=== PATIENT | male | born 1940 | race Caucasian/White ===

== ENCOUNTER 2018-09-22 02:35 | Observation (INO) ==
[2018-09-22] MEDS ORDERED: Famotidine PF Inj 20 MG/2 ML Vial IV.PUSH ONE (02:43)
[2018-09-22] MEDS ORDERED: Aluminum/Magnesium/Simethacone Susp 30 ML UDC PO ONE (02:51)
[2018-09-22 03:16] LABS: Chloride 107 meq/L (98-107); Potassium 4.3 meq/L (3.5-5.1); Sodium 140 meq/L (136-145)
[2018-09-22 03:19] LABS: Calcium 10.5 mg/dL (8.5-10.1)
[2018-09-22 03:20] LABS: Albumin 3.7 g/dL (3.4-5.0); Blood Urea Nitrogen 21 mg/dL (7-18); Glucose,Random 99 mg/dL (74-106); Lipase 100 U/L (73-393)
[2018-09-22 03:22] LABS: Alanine Aminotransferase 29 U/L (12-78); Baso # (Auto) 0.1 th/mm3 (0.0-0.2); Baso % (Auto) 0.9 % (0.0-2.0); Eos # (Auto) 0.4 th/mm3 (0.0-0.4); Eos % (Auto) 3.3 % (0.0-4.0); Hematocrit 47.5 % (39.0-51.0); Hemoglobin 15.4 gm/dL (13.0-17.0); Lymph # (Auto) 2.4 th/mm3 (1.0-4.8); Lymph % (Auto) 19.8 % (9.0-44.0); Mean Corpuscular HGB Conc 32.3 % (32.0-36.0); Mean Corpuscular Volume 83.5 fL (80.0-100.0); Mean Platelet Volume 10.8 fL (7.0-11.0); Mono # (Auto) 1.2 th/mm3 (0.0-0.9); Mono % (Auto) 9.6 % (0.0-8.0); Neut # (Auto) 7.9 th/mm3 (1.8-7.7); Neut % (Auto) 66.4 % (16.0-70.0); Platelet Count 306 th/mm3 (150-450); Red Blood Count 5.69 mil/mm3 (4.50-5.90); Red Cell Distribution Width 15.4 % (11.6-17.2)
[2018-09-22 03:23] LABS: Aspartate Aminotransferase 33 U/L (15-37); Glomerular Filtration Rate 58 mL/min (>89)
[2018-09-22 03:24] LABS: Anion Gap 6 meq/L (5-15); Carbon Dioxide 27.3 meq/L (21.0-32.0); Total Protein 7.7 g/dL (6.4-8.2)
[2018-09-22 03:25] LABS: Alkaline Phosphatase 160 U/L (45-117)
[2018-09-22] MEDS ORDERED: Sodium Chlor 0.9% Inj 500 ML IV.SIG ONE (03:28)
--- NOTE | 2018-09-22 03:32 | XR ---
EXAM DATE: 09/22/2018 3:25 AM EST AGE/SEX: 78 years / Male INDICATIONS: . Chest pain. CLINICAL DATA: This is the patient's initial encounter. Patient reports that signs and symptoms have been present for 1 day and indicates a pain score of 5/10. MEDICAL/SURGICAL HISTORY: None. None. COMPARISON: No prior exams available for comparison. FINDINGS: There is mild basilar interstitial prominence of undetermined chronicity. No evidence of alveolar con solidation or significant effusion. Cardiac contours are satisfactory. Degenerative changes present i n the spine. CONCLUSION: Mild interstitial prominence of undetermined chronicity Electronically signed by: Celso Bains MD 09/22/2018 3:31 AM EST
--- NOTE | 2018-09-22 03:59 | ED ---
HPI General Chief Complaint: Chest Pain Stated Complaint: Chest pain x 1.5 hrs Time Seen by Provider: 09/22/18 02:43 Source: patient Mode of arrival: ambulatory Limitations: no limitations History of Present Illness HPI narrative: pt is relatively healthy 78 yr old male active in shape who awoke to a substernal chest pain that radiates to his left shoulder , It was a sharp and burning like pain , It was unlike his prior " heartburn " episodes as it is shaquille in chest and radiates to left side shoulder , never had this kind of CP before. He reports he has had Stress test in the past that was negative and he was able to run on treadmill test without ptroblenuno MARQUEZ complaint: Reports chest pain STEMI Alert: No Onset (ago): hour(s) (1) Duration: constant Onset: during rest Pain location: Reports substernal and left chest Severity: moderate Severity scale (1-10): 5 Quality: Reports heaviness Pain radiation: Reports LUE and other Relieving factors: nothing Exacerbating factors: nothing Treatments prior to arrival chest pain: Reports none Related Data Home Medications Medication Instructions Recorded Confirmed aspirin 81 mg PO DAILY 09/22/18 09/22/18 esomeprazole magnesium [Nexium] 40 mg PO DAILY 09/22/18 09/22/18 lovastatin 40 mg PO DAILY 09/22/18 09/22/18 Allergies Allergy/AdvReac Type Severity Reaction Status Date / Time penicillin G Allergy Unknown Rash Verified 09/22/18 02:57 Review of Systems ROS: all other systems reviewed are negative [facility] Medical History Medical History Cyst (Acute) High cholesterol (Acute) History of Jewell's esophagus (Acute) Surgical History Surgical History History of cholecystectomy (Acute) History of knee replacement (Acute) History of tonsillectomy (Acute) Social History Social History Substance History: No History of Abuse Smoking Status: Never smoker How Often Do You Have a Drink Containing Alcohol: 4 or more times a week Recent Out of Country Travel within the Last 8 Weeks: No Exam Narrative Exam Narrative: GENERAL: healthy appearing male younger than stated age SKIN: Warm and dry. HEAD: Atraumatic. Normocephalic. EYES: Pupils equal and round. No scleral icterus. No injection or drainage. ENT: No nasal bleeding or discharge. Mucous membranes pink and moist. NECK: Trachea midline. No JVD. CARDIOVASCULAR: Regular rate and rhythm. RESPIRATORY: No accessory muscle use. Clear to auscultation. Breath sounds equal bilaterally. GASTROINTESTINAL: Abdomen soft, non-tender, nondistended. Hepatic and splenic margins not palpable. MUSCULOSKELETAL: Extremities without clubbing, cyanosis, or edema. No obvious deformities. NEUROLOGICAL: Awake and alert. No obvious cranial nerve deficits. Motor grossly within normal limits. Five out of 5 muscle strength in the arms and legs. Normal speech. PSYCHIATRIC: Appropriate mood and affect; insight and judgment normal. Course Initial Documented Vital Signs Temperature 98.0 F 09/22/18 02:40 Pulse Rate 80 09/22/18 02:40 Respiratory Rate 20 09/22/18 02:40 Blood Pressure 226/110 H 09/22/18 02:40 Pulse Oximetry 96 09/22/18 02:40 Last Documented Vital Signs Temperature 98.0 F 09/22/18 02:40 Pulse Rate 56 L 09/22/18 05:30 Respiratory Rate 18 09/22/18 05:30 Blood Pressure 164/88 H 09/22/18 05:30 Pulse Oximetry 97 09/22/18 05:30 Medical Decision Making [facility] Narrative Medical decision making narrative: EKG NSR rate of 64 BPM and trop negative , His BP was elevated 220 SBP on arrival and then 147 sbp one arm and 199 SBP other arm, pt has CTA aota to rule out disection , CTA negative admit to center for serial trop and EKG and am stress test . pt pain free at this time admitted to center Keshawn is admitting attending Medical Screen Exam Complete: Yes Emergency Medical Condition: Yes Differential Diagnosis Differential Diagnosis: ddx CP of ischemia vs CP of GERD or gastritis vs PNA vs Aortic dissection , ACS vs PTX vs other Lab Data Result diagrams: 09/22/18 02:45 09/22/18 02:45 Lab Results 09/22/18 09/22/18 09/22/18 Range/Units 02:45 02:45 03:33 CBC w Diff Auto diff final WBC 12.0 H (4.0-11.0) th/mm3 RBC 5.69 (4.50-5.90) mil/mm3 Hgb 15.4 (13.0-17.0) gm/dL Hct 47.5 (39.0-51.0) % MCV 83.5 (80.0-100.0) fL MCH 27.0 (27.0-34.0) pg MCHC 32.3 (32.0-36.0) % RDW 15.4 (11.6-17.2) % Plt Count 306 (150-450) th/mm3 MPV 10.8 (7.0-11.0) fL Neut % (Auto) 66.4 (16.0-70.0) % Lymph % (Auto) 19.8 (9.0-44.0) % [place]ford % (Auto) 9.6 H (0.0-8.0) % Eos % (Auto) 3.3 (0.0-4.0) % Baso % (Auto) 0.9 (0.0-2.0) % Neut # (Auto) 7.9 H (1.8-7.7) th/mm3 Lymph # (Auto) 2.4 (1.0-4.8) th/mm3 Blackford # (Auto) 1.2 H (0.0-0.9) th/mm3 Eos # (Auto) 0.4 (0.0-0.4) th/mm3 Baso # (Auto) 0.1 (0.0-0.2) th/mm3 WBC Differential . Differential Comment . Sodium 140 (136-145) meq/L Potassium 4.3 (3.5-5.1) meq/L Chloride 107 (98-107) meq/L Carbon Dioxide 27.3 (21.0-32.0) meq/L Anion Gap 6 (5-15) meq/L BUN 21 H (7-18) mg/dL Creatinine 1.20 (0.60-1.30) mg/dL Estimated GFR 58 L (>89) mL/min Random Glucose 99 (74-106) mg/dL Calcium 10.5 H (8.5-10.1) mg/dL Total Bilirubin 0.4 (0.2-1.0) mg/dL AST 33 (15-37) U/L ALT 29 (12-78) U/L Alkaline Phosphatase 160 H (45-117) U/L Troponin I Less than 0.02 L (0.02-0.05) ng/mL Total Protein 7.7 (6.4-8.2) g/dL Albumin 3.7 (3.4-5.0) g/dL Lipase 100 (73-393) U/L Imaging Data Radiologist's impression: Chest X-Ray 09/22/18 02:52 CONCLUSION: Mild interstitial prominence of undetermined chronicity Thoracic Aorta CT 09/22/18 03:29 CONCLUSION: No acute findings Discharge Plan Discharge Disposition Patient Disposition: 30 Still Patient Physicians Team ED Provider: Tanner Ferreira Primary Care Provider: Morris Vee Rxs /Orders / Referrals /Forms Prescriptions: No Action lovastatin 40 mg Tablet 40 mg PO DAILY RF: 0 esomeprazole magnesium [Nexium] 40 mg Capsule,Delayed Release(Dr/Ec) 40 mg PO DAILY RF: 0 aspirin 81 mg Tablet,Chewable 81 mg PO DAILY RF: 0 Discharge Instructions Patient Printed Instructions: Chest Pain (ED) Discharge Interventions Interventions: Vital Signs Last Done: 09/22/18 05:30 Status ED Status: Admitted Observation Patient
--- NOTE | 2018-09-22 05:13 | CT ---
EXAM DATE: 09/22/2018 4:28 AM EST AGE/SEX: 78 years / Male INDICATIONS: Sudden onset of chest pain. CLINICAL DATA: This is the patient's initial encounter. Patient reports that signs and symptoms have been present for 1 day and indicates a pain score of 3/10. MEDICAL/SURGICAL HISTORY: None. Cholecystectomy. RADIATION DOSE: 22.59 CTDI (mGy) COMPARISON: [facility], CT ABDOMEN & PELVIS W CONTRAST, 12/08/2014. . TECHNIQUE: Volumetric scanning was performed using a multi-row detector CT scanner during bolus infu anthony of 100 ml Omnipaque 350 (iohexol) nonionic water-soluble contrast as a single exam dose. The d kristian was post processed with a variety of visualization algorithms including full volume maximum inten sity projection, multi-planar sliding thin slab reformation, curved planar reformation, and surface r endering techniques. Using automated exposure control and adjustment of the mA and/or kV according t o patient size, radiation dose was kept as low as reasonably achievable to obtain optimal diagnostic quality images. DICOM format image data is available electronically for review and comparison. FINDINGS: The thoracic aorta is normal in caliber and appearance throughout with no evidence of aneurysm, steno sis or dissection. Classical arch anatomy is identified with widely patent arch vessels. The abdomina l aorta is notable for patchy intimal calcifications. No evidence of aneurysm stenosis or dissection. The aortic visceral vessels are satisfactory in appearance. Specifically, the celiac, SMA and renal arteries are widely patent. The AMANDA is patent. In the pelvis, the iliacs are patent bilaterally. Inte rnal iliac vessels are patent bilaterally. The common femoral arteries are healthy in appearance and the visualized proximal thigh vessels are intact. Elsewhere, the pulmonary arteries are well contrasted and are normal in diameter without filling defe cts. There are some coronary calcifications noted. There is no evidence of mediastinal mass or lympha denopathy. A moderate size hiatal hernia is present. A large cyst is present arising from the anterior lower pole cortex of the right kidney. There are stable tiny pleural-based nodules in the lung bases. CONCLUSION: No acute findings Electronically signed by: Celso Bains MD 09/22/2018 5:11 AM EST
[2018-09-22 08:32] LABS: Creatine Kinase 156 U/L (39-308)
--- NOTE | 2018-09-22 09:07 | P.HP ---
History of Present Illness Primary Care Physician: Morris Vee MD Chief Complaint: Chest pain History of Present Illness: This is an 78-year-old male patient with a known medical history of Jewell's esophagus, and hyperlipidemia presented to the ED with complaints of chest pain. Patient states that he was awoken out of sleep roughly around 1 AM with a midsternal chest pain that radiated to his left shoulder and left arm. He states that the pain is characteristically heavy and dull in nature, is constant , rated a 5 out of 10 at its worst on pain scale, and worse with breathing. He denies any associated nausea, vomiting, shortness of breath or sweating with the pain. Patient states that the pain lasted several hours and then has improved since he has been in the hospital. He was given aspirin and nitroglycerin in the ED. He denies any recent illness including fever, chills, cough, headache, abdominal pain, nausea, vomiting, diarrhea or dysuria. Patient lives half the year in [place] and half the year here, follows with his PCP last seen in April. Denies any new changes to his medications. He did undergo a cardiac stress test roughly 3 years ago which was reportedly normal. Patient is very active for his age, he states him and his bike 25 miles a week as well as playing pickle ball daily. - Diagnosis (1) Chest pain (2) Hypertension Review of Systems All other systems reviewed negative except as stated in HPI PMFSH - History History Provided By: Patient - Medical History Medical History: Medical History (Last Reviewed 09/22/18 @ 10:05 by Elaina Ervin) Cyst High cholesterol History of Jewell's esophagus - Surgical History Surgical History: Surgical History (Last Reviewed 09/22/18 @ 10:05 by Elaina Ervin) History of cholecystectomy History of knee replacement History of tonsillectomy - Family History Family History: Family History (Last Updated 09/22/18 @ 10:05 by Elaina Ervin) Other Family history non-contributory - Social History I have reviewed the patient's Social History: Yes - Tobacco History Smoking Status: Never smoker - Alcohol History How Often Do You Have a Drink Containing Alcohol: 4 or more times a week - Substance Use History Substance History: No History of Abuse - Travel History Recent Travel Out of the Country Within the Last 8 Weeks: No - Immunization History Tetanus Immunization: Unsure Medications and Allergies Active Medications: Active Medications Aspirin (Aspirin Chew) 81 mg PO DAILY [facility] Enalaprilat (Vasotec Inj) 1.25 mg IV.PUSH Q6H PRN PRN Reason: SBP>180, DBP>100, HR>65 Pantoprazole Sodium (Protonix) 40 mg PO DAILY TINO Pravastatin Sodium (Pravachol) 40 mg PO DAILY TINO Sodium Chloride (Ns Flush) 2 ml IV.FLUSH BID TINO Sodium Chloride (Ns Flush) 2 ml IV.FLUSH PRN PRN PRN Reason: FLUSH AFTER USING IV ACCESS Allergies Allergy/AdvReac Type Severity Reaction Status Date / Time penicillin G Allergy Unknown Rash Verified 09/22/18 02:57 Home Medications Medication Instructions Recorded Confirmed Type aspirin 81 mg PO DAILY 09/22/18 09/22/18 History esomeprazole magnesium [Nexium] 40 mg PO DAILY 09/22/18 09/22/18 History lovastatin 40 mg PO DAILY 09/22/18 09/22/18 History Exam Vital signs: Vital Signs 09/22/18 02:40 09/22/18 02:55 09/22/18 03:16 Temperature 98.0 F Pulse Rate 80 65 Respiratory Rate 20 18 Blood Pressure 226/110 H 147/66 H 199/88 H Pulse Oximetry 96 95 09/22/18 04:10 09/22/18 04:11 09/22/18 05:30 Temperature Pulse Rate 56 L 56 L Respiratory Rate 18 18 Blood Pressure 170/83 H 174/77 H 164/88 H Pulse Oximetry 95 97 09/22/18 06:30 09/22/18 07:23 Temperature Pulse Rate 62 60 Respiratory Rate 18 16 Blood Pressure 160/73 H 182/84 H Pulse Oximetry 96 95 Intake & Output 09/21/18 09/22/18 09/22/18 18:59 06:59 18:59 Intake Total 500 / 500 Output Total 325 / 325 Balance 175 / 175 Weight 111.6 kg Intake: IV 500 / 500 NS Inj 500 ML @ Wide Open IV. 500 / 500 SIG BOLUS ONE Rx#:[id number] Output: Urine 325 / 325 Narrative: GENERAL: Well-developed, well-nourished patient in [facility]. SKIN: Warm and dry. No rash. HEAD: Normocephalic. Atraumatic. EYES: Pupils equal and round. No scleral icterus. No injection or drainage. ENT: No nasal bleeding or discharge. Mucous membranes pink and moist. NECK: Supple. Trachea midline. CARDIOVASCULAR: Regular rate and rhythm. S1, S2 noted. No murmur appreciated. Mild reproducible chest pain to left sternal chest RESPIRATORY: No accessory muscle use. Clear to auscultation. Breath sounds equal bilaterally. GASTROINTESTINAL: Abdomen soft, non-tender, nondistended. Normoactive bowel sounds x4. MUSCULOSKELETAL: No obvious deformities. Extremities without clubbing, cyanosis , or edema. NEUROLOGICAL: Awake and alert. No obvious cranial nerve deficits. Motor grossly within normal limits. 5/5 muscle strength in bilateral upper and lower extremities. Normal speech. PSYCHIATRIC: Appropriate mood and affect; insight and judgment normal. Results - Labs CBC & Chem 7: 09/22/18 02:45 09/22/18 02:45 Labs: Laboratory Results - last 24 hr 09/22/18 09/22/18 09/22/18 02:45 02:45 03:33 CBC w Diff Auto diff final WBC 12.0 H RBC 5.69 Hgb 15.4 Hct 47.5 MCV 83.5 MCH 27.0 MCHC 32.3 RDW 15.4 Plt Count 306 MPV 10.8 Neut % (Auto) 66.4 Lymph % (Auto) 19.8 Saline % (Auto) 9.6 H Eos % (Auto) 3.3 Baso % (Auto) 0.9 Neut # (Auto) 7.9 H Lymph # (Auto) 2.4 Saline # (Auto) 1.2 H Eos # (Auto) 0.4 Baso # (Auto) 0.1 WBC Differential . Differential Comment . Sodium 140 Potassium 4.3 Chloride 107 Carbon Dioxide 27.3 Anion Gap 6 BUN 21 H Creatinine 1.20 Estimated GFR 58 L Random Glucose 99 Calcium 10.5 H Total Bilirubin 0.4 AST 33 ALT 29 Alkaline Phosphatase 160 H Total Creatine Kinase Troponin I Less than 0.02 L Total Protein 7.7 Albumin 3.7 Lipase 100 09/22/18 06:30 CBC w Diff WBC RBC Hgb Hct MCV MCH MCHC RDW Plt Count MPV Neut % (Auto) Lymph % (Auto) Saline % (Auto) Eos % (Auto) Baso % (Auto) Neut # (Auto) Lymph # (Auto) Saline # (Auto) Eos # (Auto) Baso # (Auto) WBC Differential Differential Comment Sodium Potassium Chloride Carbon Dioxide Anion Gap BUN Creatinine Estimated GFR Random Glucose Calcium Total Bilirubin AST ALT Alkaline Phosphatase Total Creatine Kinase 156 Troponin I Less than 0.02 L Total Protein Albumin Lipase - Imaging Impressions Chest X-Ray 09/22/18 02:52 CONCLUSION: Mild interstitial prominence of undetermined chronicity Thoracic Aorta CT 09/22/18 03:29 CONCLUSION: No acute findings Caprini VTE Risk Assessment Caprini VTE Risk Assessment: Moderate/High Risk (score >= 2) Caprini Risk Assessment Model: Point Value = 1 Point Value = 2 Point Value = 3 Point Value = 5 Age 41-60 Minor surgery BMI > 25 kg/m2 Swollen legs Varicose veins or History of unexplained or recurrent spontaneous Oral contraceptives or hormone replacement Sepsis (< 1 month) Serious lung disease, including pneumonia (< 1 month) Abnormal pulmonary function Acute myocardial infarction Congestive heart failure (< 1 month) History of inflammatory bowel disease Medical patient at bed rest Age 61-74 Arthroscopic surgery Major open surgery (> 45 min) Laparoscopic surgery (> 45 min) Malignancy Confined to bed (> 72 hours) Immobilizing plaster cast Central venous access Age >= 75 History of VTE Family history of VTE Factor V Leiden Prothrombin [id number] Lupus anticoagulant Anticardiolipin antibodies Elevated serum homocysteine Heparin-induced thrombocytopenia Other congenital or acquired thrombophilia Stroke (< 1 month) Elective arthroplasty Hip, pelvis, or leg fracture Acute spinal cord injury (< 1 month) Prophylaxis Regimen: Total Risk Factor Score Risk Level Prophylaxis Regimen 0-1 Low Early ambulation 2 Moderate Order ONE of the following: *Sequential Compression Device (SCD) *Heparin 5000 units SQ BID 3-4 Higher Order ONE of the following medications: *Heparin 5000 units SQ TID *Enoxaparin/Lovenox 40 mg SQ daily (WT < 150 kg, CrCl > 30 mL/min) *Enoxaparin/Lovenox 30 mg SQ daily (WT < 150 kg, CrCl > 10-29 mL/min) *Enoxaparin/Lovenox 30 mg SQ BID (WT < 150 kg, CrCl > 30 mL/min) AND/OR *Sequential Compression Device (SCD) 5 or more Highest Order ONE of the following medications: *Heparin 5000 units SQ TID (Preferred with Epidurals) *Enoxaparin/Lovenox 40 mg SQ daily (WT < 150 kg, CrCl > 30 mL/min) *Enoxaparin/Lovenox 30 mg SQ daily (WT < 150 kg, CrCl > 10-29 mL/min) *Enoxaparin/Lovenox 30 mg SQ BID (WT < 150 kg, CrCl > 30 mL/min) AND *Sequential Compression Device (SCD) Assessment and Plan - Assessment (1) Chest pain Code(s): R07.9 - Chest pain, unspecified Status: Acute Plan: Patient has been admitted to the chest pain center for observation. Serial EKGs and serial troponins have been ordered for ruling out ACS purposes. Initial 2 troponins flat. Continue to follow third enzyme. EKG reviewed showing normal sinus rhythm with controlled heart rate, no ST changes to indicate any ischemia. Continued on cardiac telemetry, no arrhythmias overnight. A CTA was done in the ED to rule out aortic dissection which was negative. Patient did present with a significantly elevated blood pressure with systolic in the 220s, this has improved overnight but still consistently with systolic in the 180s. Will add antihypertensive. If ACS ruled out with serial EKGs and serial troponins, patient will undergo a cardiac treadmill stress test to further rule out any ischemia. Patient is very active and I feel will be able to complete the treadmill stress test. Patient is stable at this time and agreeable to the plan. Further hospitalization and treatment plan will depend on nuclear imaging results. Will continue home statin. (2) Hypertension Code(s): I10 - Essential (primary) hypertension Status: Acute Plan: Patient presented with systolic in the 200s. Has improved although systolic is still in the 180s. Will start lisinopril. Monitor blood pressure trends. - Plan Discussed Condition With: Patient and .
[2018-09-22 10:09] LABS: Creatine Kinase 128 U/L (39-308)
[2018-09-22] MEDS ORDERED: Lisinopril 10 MG Tablet PO SCH (10:15)
--- NOTE | 2018-09-22 10:26 | ECG ---
Date Performed: 09/22/2018 Time Performed: 06:41:46 PTAGE: 78 years EKG: Sinus rhythm NORMAL ECG Since the PREVIOUS TRACING , no significant change noted PREVIOUS TRACIN09/22/2018 02.41 DOCTOR: Arturo Donohue Interpretating Date/Time 09/22/2018 10:25:36
--- NOTE | 2018-09-22 10:27 | ECG ---
Date Performed: 09/22/2018 Time Performed: 02:41:54 PTAGE: 78 years EKG: Sinus rhythm NORMAL ECG Since the PREVIOUS TRACING , no significant change noted PREVIOUS TRACIN12/08/2014 14.29 DOCTOR: Arturo Donohue Interpretating Date/Time 09/22/2018 10:25:48
[2018-09-22 12:49] VITALS: BP 173/81; PULSE 59; RESP 20; TEMP 97; O2SAT 96
--- NOTE | 2018-09-22 13:33 | TR ---
Date Performed: 09/22/2018 Time Performed: 12:28:40 DOCTOR: Marine Sexton DRUG LIST: CLINICAL HISTORY: REASON FOR TEST: REASON FOR ENDING: OBSERVATION: CONCLUSION: Darinel protocol completed, test stopped secondary to reaching target heart rate. No r eproducible chest pain. No ST changes. Good BP response. Recovery quick and unremarkable. Maximum HR= 119 Max HR Achieved=85.0% Maximum XJ=560/72 Total Exercise Time=3:30 No definitive ischemia COMMENTS: Poor exercise capacity and no definitive ischemia
--- NOTE | 2018-09-23 16:00 | ECG ---
Date Performed: 09/22/2018 Time Performed: 09:33:03 PTAGE: 78 years EKG: SINUS BRADYCARDIA Since previous tracing, no significant change noted BORDERLINE ECG PREVIOUS TRACING : 09/22/2018 06.41 DOCTOR: Regina Herrera Interpretating Date/Time 09/23/2018 15:58:03
== END 2018-09-22 13:45 | disposition home or self-care (01) ==
LOC: PHED 02:35 → PHEDA 02:35 → PH3 08:10
PROVIDERS: ADMIT Internal Medicine; ATTEND Internal Medicine